=== PATIENT | female | born 1950 | race Caucasian/White ===

== ENCOUNTER 2017-11-02 09:23 | Outpatient (CLI) | payer MEDICARE ==
[~2017-11-02 09:23] MED LIST: Iopamidol 370 76% 100 ML VIAL ONE
--- NOTE | 2017-11-02 14:18 | CT ---
ABDOMEN CT WITH AND WITHOUT CONTRAST: Date: 11/02/17 HISTORY: Follow-up pancreatic mass. COMPARISON: 02/16/16. TECHNIQUE: Abdomen CT is performed with and without contrast. Coronal reformatted images are submitted for inter pretation. FINDINGS: ABDOMEN CT: Lung bases are clear. Heart size is normal. No pericardial effusion. Visualized aorta has a normal ca liber. No periaortic fat stranding. Visualized alimentary canal is unremarkable. Gastric mucosa, duodenum, and multiple normal caliber sm all bowel loops are noted. Visualized colon demonstrates contrast and fecal material. No colonic obst ruction. Gallbladder is surgically absent. Liver, spleen, and adrenal glands have appropriate enhancement. Symmetric enhancement of the kidneys. No obstructive uropathy. Symmetric attenuation of the psoas mus cles. Redemonstration of a 1.7 anterior posterior x 1.6 cm mediolateral hypodense lesion with an attenuatio n coefficient of 10 Hounsfield units on the noncontrast study. Previously, this lesion measured 1.5 x 1.6 cm. No appreciable change. There is mild atrophy of the pancreas with interdigitation of fat within the pancreatic parenchyma. N o inflammatory change. Hemangioma involving L4 vertebral body is noted. IMPRESSION: Stable cyst in the mid body of the pancreas. POS: [facility]
== END 2017-11-02 09:24 | disposition home or self-care (01) ==
LOC: SCSCT 09:23
PROVIDERS: ATTEND Internal Medicine Gastroenterology
DX: K86.2 Cyst of pancreas (principal)
CPT/HCPCS: 74170; 82565